=== PATIENT | female | born 1985 | race African-American/Black ===

== ENCOUNTER 2018-12-20 13:43 | Inpatient (IN) | payer MEDICAID ==
[~2018-12-20] VITALS: Ht 172.7 cm; Wt 81.2 kg
[~2018-12-20 13:43] MED LIST: AMLO-147 PO; ASPI-817 PO; ASPI81TA52 PO; ATOR40TA68 PO; CARV3.1260 PO; DILT120C77 PO; HYDR-3672 PO; HYDR12.53 PO; HYDR25TA6 PO; LISI10TA2 PO; METF-480 PO; METF500T PO; METF500T24 PO
[2018-12-20] MEDS ORDERED: SOD CHLORIDE 0.9% 1,000 ML IV STA (13:58)
[2018-12-20] MEDS ORDERED: METOPROLOL 5 MG INJ IV ONE ×2 (14:30→16:30)
[2018-12-20] MEDS ORDERED: ONDANSETRON 4 MG INJ IV PRN (16:30)
[2018-12-20] MEDS ORDERED: CEFTRIAXONE 1 GM/50 ML (PMX) 50 ML IVPB ONE (16:30)
[2018-12-20] MEDS ORDERED: ACETAMINOPHEN 325 MG TAB PO PRN ×2 (16:30→17:00)
--- NOTE | 2018-12-20 16:59 | ERD ---
ER Documentation Chief Complaint Chief Complaint SYNCOPAL EPISODE TODAY FOUND ON FLOOR WITH NO TRAUMA. NO CP OR SOB . NO SZ HPI This is a 33-year-old female with a past medical history of hypertension, hyperlipidemia, diabetes, previous stroke with residual left-sided facial droop, noncompliant on her blood pressure medications, who is presenting with a transient episode of unresponsiveness at this morning. The patient was repor tedly in bed when she had an episode of unresponsiveness. She reportedly fell out of the bed. The patient seemed to wake up shortly thereafter. There is no witnessed seizure-like activity. There is no tonic-clonic shaking. Patient seemed confused after the event, but she returned to baseline prior to arrival to the emergency department. The patient does not endorse any focal deficits at this time aside from her left-sided facial droop. The patient denies feeling sick recently. The patient denies fever or chills. The patient has had no headache or vision changes. The patient does not endorse neck or back pain. The patient denies lightheadedness or dizziness. The patient has had no chest pain or trouble breathing. The patient denies nausea or vomiting. The patient denies abdominal pain. The patient denies changes to bowel movements or urination. ROS All systems reviewed and are negative except as per history of present illness. Medications Home Meds Reported Medications Aspirin (Low Dose Aspirin) 81 Mg Tablet.dr, 81 MG PO DAILY, #30 TAB 12/20/18 Hydralazine Hcl* (Hydralazine Hcl*) 50 Mg Tab, 50 MG PO TID PRN for BLOOD PRESSURE SUPPORT, #120 TAB 12/20/18 Metformin Hcl* (Metformin Hcl*) 500 Mg Tablet, 500 MG PO WITH BREAKFAST, #30 TAB 12/20/18 Atorvastatin* (Atorvastatin*) 40 Mg Tablet, 40 MG PO QHS, #30 TAB 12/20/18 Amlodipine Besylate* (Amlodipine Besylate*) 10 Mg Tablet, 10 MG PO DAILY, #30 TAB 12/20/18 Hydrochlorothiazide* (Hydrochlorothiazide*) 25 Mg Tab, 25 MG PO DAILY, #30 TAB 12/20/18 Discontinued Reported Medications Metformin Hcl (Glucophage) 500 Mg Tablet, 500 MG PO DAILY 09/07/13 Discontinued Scripts Hydrochlorothiazide (Hydrochlorothiazide) 12.5 Mg Capsule, 12.5 MG PO DAILY for 30 Days, CAP 2 Refills Prov:SHIRA,BOLATITO M. 04/17/16 Aspirin* (Aspirin* EC) 81 Mg Tablet.dr, 81 MG PO DAILY for 30 Days, 2 Refills Prov:MALDONADO SILVA. 04/17/16 Lisinopril* (Lisinopril*) 10 Mg Tablet, 20 MG PO DAILY for 30 Days, 2 Refills Prov:MALDONADO SILVA. 04/17/16 Allergies Allergies: Coded Allergies: Penicillins (Verified Allergy, Intermediate, RASH, 12/20/18) PMhx/Soc History of Surgery: No Anesthesia Reaction: No Hx Neurological Disorder: Yes (CVA) Hx Respiratory Disorders: No Hx Cardiac Disorders: Yes (Hypertension, hyperlipidemia, diabetes) Hx Psychiatric Problems: No Hx Miscellaneous Medical Probl: No Hx Alcohol Use: Yes (Socially) Hx Substance Use: No Hx Tobacco Use: No Smoking Status: Never smoker FmHx Family History: diabetes Physical Exam Vitals Vital Signs Date Temp Pulse Resp B/P (MAP) Pulse Ox O2 O2 Flow FiO2 Time Delivery Rate 12/20/18 91 18 191/109 97 Room Air 15:42 (136) 12/20/18 99.1 123 20 240/139 99 13:54 (172) Physical Exam Const: No apparent distress, well-developed, well-nourished Head: Normocephalic, Atraumatic Eyes: Normal Conjunctiva. Extraocular movements intact. Pupils equal, round and reactive to light ENT: Normal External Ears, Nose and Mouth. Neck: Full range of motion. No meningismus. Resp: Clear to auscultation bilaterally, No wheezes, rales or rhonchi Cardio: Regular rhythm. Tachycardia. No murmurs, rubs or gallops. Hypertensive 240s/130s Abd: Soft, non tender, non distended. Normal bowel sounds Skin: No petechiae or rashes Back: No midline tenderness. No CVA tenderness Ext: No cyanosis, or edema Neur: Awake and alert, oriented 4. Cranial nerves intact. Left facial droop. Normal strength, sensation and coordination. Psych: Normal Mood and Affect Result Diagram: 12/20/18 1427 12/20/18 1427 Results 24 hrs Laboratory Tests Test 12/20/18 14:26 12/20/18 14:27 12/20/18 14:48 Bedside Glucose 221 mg/dL White Blood Count 7.3 10^3/ul Red Blood Count 4.68 10^6/ul Hemoglobin 13.9 g/dl Hematocrit 41.0 % Mean Corpuscular Volume 87.6 fl Mean Corpuscular Hemoglobin 29.7 pg Mean Corpuscular 33.9 g/dl Hemoglobin Concent Red Cell Distribution Width 13.0 % Platelet Count 271 10^3/UL Mean Platelet Volume 10.8 fl Immature Granulocytes % 0.300 % Neutrophils % 56.7 % Lymphocytes % 29.4 % Monocytes % 11.3 % Eosinophils % 1.2 % Basophils % 1.1 % Nucleated Red Blood Cells % 0.0 /100WBC Immature Granulocytes # 0.020 10^3/ul Neutrophils # 4.2 10^3/ul Lymphocytes # 2.2 10^3/ul Monocytes # 0.8 10^3/ul Eosinophils # 0.1 10^3/ul Basophils # 0.1 10^3/ul Nucleated Red Blood Cells # 0.0 10^3/ul Prothrombin Time 14.0 Sec Prothrombin Time Ratio 1.1 INR International 1.07 Normalized Ratio Sodium Level 135 mmol/L Potassium Level 3.2 mmol/L Chloride Level 99 mmol/L Carbon Dioxide Level 29 mmol/L Anion Gap 7 Blood Urea Nitrogen 19 mg/dl Creatinine 0.83 mg/dl Est Glomerular Filtrat > 60 mL/min Rate mL/min Glucose Level 250 mg/dl Calcium Level 9.1 mg/dl Troponin I 0.032 ng/ml Urine Color YELLOW Urine Clarity SLIGHTLY CLOUDY Urine pH 8.0 Urine Specific [place] 1.012 Urine Ketones NEGATIVE mg/dL Urine Nitrite NEGATIVE mg/dL Urine Bilirubin NEGATIVE mg/dL Urine Urobilinogen NEGATIVE mg/dL Urine Leukocyte Esterase NEGATIVE Damián/ul Urine Microscopic RBC 2 /HPF Urine Microscopic WBC 8 /HPF Urine Squamous Epithelial Cells MODERATE /HPF Urine Bacteria FEW /HPF Urine Hemoglobin NEGATIVE mg/dL Urine Glucose 3+ mg/dL Urine Total Protein 3+ mg/dl Current Medications Medications Dose Sig/Jose Daivd Start Time Status Last (Trade) Ordered Route PRN Stop Time Admin Dose Reason Admin Sodium 1,000 ml @ Q1H STAT 12/20/18 DC Chloride 1,000 mls/hr IV 13:58 12/20/18 14:57 Metoprolol 5 mg ONCE ONCE 12/20/18 DC 12/20/18 Tartrate IV 14:30 14:31 (Lopressor) 12/20/18 14:31 Procedures/MDM MDM The patient's presentation warrants further investigation. Previous medical records, if available, were reviewed. LABS The patient's laboratory testing was obtained and reviewed. No emergent treatment was required unless described below. CBC: No E/o systemic infection or severe anemia or thrombocytopenia Chemistry: Hypokalemia, not emergent. No E/o severe acidosis or alkalosis or renal failure. Hyperglycemia without diabetic ketoacidosis PT/INR: No E/o significant coagulopathy Troponin: No E/o acute ischemia Urine: E/o acute infection without hematuria EKG EKG read by me: Rate/Rhythm: Regular rate and rhythm at a rate of 90 bpm Intervals: Normal Renick: Normal Impression: LVH with early repolarization. No evidence of STEMI. IMAGING Imaging and Radiology interpretation reviewed. CXR COMPARISON: 04/15/2016 FINDINGS: The lungs are clear. The heart size is magnified. There is no pleural effusion. There is no pneumothorax. IMPRESSION: No focal consolidation. Electronically viewed and signed by Physician Adiel on 12/20/2018 14:24 CT Head COMPARISON: MR 04/16/2016; CT BRAIN 04/05/2012 FINDINGS: There is no intracranial hemorrhage, mass effect, or midline shift. No extra-axial fluid collection is seen. Mild cerebral volume loss, new since the prior studies. There is patchy decreased attenuation in the periventricular and deep white matter, somewhat nonspecific. The diego white matter differentiation appears well-preserved no acute infarct. The visualized paranasal sinuses and osseous structures are grossly unremarkable. IMPRESSION: 1. No evidence of acute intracranial pathology. 2. Mild patchy decreased attenuation in the periventricular and deep white matter, which is fairly nonspecific in appearance and could reflect sequelae related to hypertensive microvascular ischemic disease or perhaps complicated migraines. Demyelination cannot be entirely excluded in the appropriate clinical setting. Consider continued follow-up with MRI. 3. Mild cerebral volume loss, new since the prior studies. Electronically viewed and signed by Bia Alberto MD, on 12/20/2018 14:57 TREATMENT/DISPOSITION The patient presents for an episode of syncope. I am concerned about possible correlation with her significant hypertension, which is concerning for hypertensive urgency/emergency. The patient is also significantly tachycardic. The patient's symptoms are not consistent with pulmonary embolism, which was con sidered given her syncopal event this morning. The patient was given doses of Lopressor in the emergency department with improvement of her heart rate and blood pressure. The patient does admit to noncompliance with her blood pressure medications, which is likely associated with her presentation today. The patient's troponin is within normal limits. The patient's EKG does reveal findings potentially concerning for demand ischemia versus simply left ventricular hypertrophy with early repolarization. I do not suspect acute coronary syndrome. I do not see evidence of any emergent cardiac arrhythmia, which includes but is not limited to heart block, Brugada syndrome or WPW. The patient has no heart murmurs or rales. There is no evidence of cardiomegaly on exam or chest xray. I have low suspicion for hypertrophic cardiomyopathy. I do not see evidence of CHF. The patient does not endorse any chest or pleuritic pain. The history is negative for bleeding or clotting disorders. The patient has not been involved in any recent prolonged trips or surgeries or hospitalizations. The patient has no calf tenderness or swelling. I have decreased suspicion for PE as the etiology of symptoms. The patient is not clinically orthostatic. The patient is not dizzy. I have decreased suspicion for vertigo. The patient has no signs of emergent or symptomatic anemia. The patient does not have any emergent electrolyte or metabolic emergencies. I have decrease suspicion for a thyroid disorder. The patient is not toxic appearing. I have decreased suspicion for an infectious etiology of symptoms. That said, the patient has a urinalysis that is potentially consistent with a urinary tract infection. She was given a dose of Rocephin in the emergency department. The patient has no new focal deficits. The patient has a chronic unchanged left facial droop from previous stroke. Otherwise, the neurologic exam is reassuring. The patient CT of the head does not reveal evidence of acute ischemia. I have decreased suspicion for cerebral ischemia. There was no trauma or injury. There is no personal or family history of cerebral aneurysm. I have decreased suspicion for SAH or other ICH. I have low suspicion for temporal arteritis, cavernous venous thrombosis, subdural hematoma, epidural hematoma, meningitis. ADMISSION At this time, I feel that the patient requires admission for further evaluation and management. The patient will be admitted to panel in accordance with the patient's insurance. The patient was accepted by Dr. Foreman at 1614 p.m on December 20, 2018 to telemetry. DISCLAIMER Inadvertent spelling and grammatical errors are likely due to EHR/dictation software use and do not reflect on the overall quality of patient care. Note that the electronic time recorded on this note does not necessarily reflect the actual time of the patient encounter. Departure Diagnosis: Primary Impression: Syncope Syncope type: unspecified Qualified Codes: R55 - Syncope and collapse Additional Impressions: Hypertensive urgency Tachycardia Demand ischemia LVH (left ventricular hypertrophy) UTI (urinary tract infection) Urinary tract infection type: acute cystitis Hematuria presence: without hematuria Qualified Codes: N30.00 - Acute cystitis without hematuria Hypokalemia Hyperglycemia Condition: Serious JACI MARTINEZ MD Dec 20, 2018 16:35
[2018-12-20] MEDS ORDERED: GLUCOSE GEL 15 GRAM TUBE PO PRN ×2 (17:00)
[2018-12-20] MEDS ORDERED: GLUCAGON 1 MG INJ IM PRN (17:00)
[2018-12-20] MEDS ORDERED: GLUCOSE GEL 15 GRAM TUBE BUCCAL PRN (17:00)
[2018-12-20] MEDS ORDERED: NACL 0.9% 3 ML SYG IV SCH (17:00)
[2018-12-20] MEDS ORDERED: DEXTROSE 50% 50 ML SYRINGE IV PRN ×2 (17:00)
--- NOTE | 2018-12-20 17:06 | HP ---
Date/Time of Note Date/Time of Note DATE: 12/20/18 TIME: 16:47 Assessment/Plan VTE Prophylaxis SCD applied (from Nsg): Yes Pharmacological prophylaxis: NA/contraindicated Pharm contraindication: low risk/ambulating Lines/Catheters IV Catheter Type (from Nrsg): Saline Lock Assessment/Plan Assessment/Plan 33 yo obese woman with history of uncontrolled hypertension and diabetes presents with severe hypertension #Syncope - Occurred while the patient was laying down, not consistent with orthostatic syncope. - May have been a vasovagal event. - Had abnormal MRI in the past. Will get repeat MRI to further evaluate. And will get carotid duplex to work up neurogenic causes. - She denies chest pain/pressure/palpitations, denies heart failure symptoms. Will admit to telemetry for 24 hrs. I do not think extensive cardiac workup is necessary. #Severe hypertension - The patient is supposed to be on norvasc, HCTZ, and hydralazine but doesn't take them. - Will restart home BP meds for now. - Will try to get SBP<180 overnight. - prn labetalol. #Diabetes type II - Will resume home metformin - Sliding scale insulin. #Dyslipidemia - Continue home aspirin, statin. DVT: SCDs GI: None Result Diagram: 12/20/18 1427 12/20/18 1427 HPI/ROS Admit Date/Time Admit Date/Time 20 December 2018 Hx of Present Illness Ms. Polanco is an obese 33 yo woman with diabetes and hypertension who presents after a syncopal episode. She was at home, lying on her bed talking on the phone. Suddenly she lost consciousness and woke up face down on the floor (she had rolled off the bed). She denies associated headache, dizziness, palpitations, or chest pain prior to the event. Her grandmother was at home, heard a thump, and called EMS. The patient says at work a few weeks ago she had an episode of dizziness. Otherwise no recent symptoms. She is supposed to be on three antihypertensives but has been off them for months because "they make me feel nauseated and dizzy". In the ED she was afebrile, tachy to 120s, BP 240/139, breathing comfortably on room air. CT showed areas of mild patchy decreased attenuation in the periventricular and deep white matter. CXR was clear. Troponin was negative. ROS The patient denies fever, chills, night sweats, anorexia, headache, dizziness, vision changes, nausea, vomiting, abdominal pain, cough, dyspnea, sore throat, diarrhea, constipation, leg swelling, dysuria. PMH/Family/Social Past Medical History Hypertension Diabetes mellitus type II The patient says she had a stroke at age 16 with L facial droop, but MRI in 2016 does not show any old stroke. Medications Current Medications Ceftriaxone Sodium 50 ml @ 100 mls/hr ONCE ONCE IVPB ; Start 12/20/18 at 16:30; Stop 12/20/18 at 16:59 Ondansetron HCl (Zofran Inj) 4 mg ER BRIDGE PRN IV NAUSEA/VOMITING; Start 12/20/18 at 16:30; Stop 12/21/18 at 16:29 Acetaminophen (Tylenol Tab) 650 mg ER BRIDGE PRN PO .MILD PAIN 1-3 OR TEMP; Start 12/20/18 at 16:30; Stop 12/21/18 at 16:29 IV Flush (NS 3 ml) 3 ml PER PROTOCOL IV ; Start 12/20/18 at 17:00; Status UNV Acetaminophen (Tylenol Tab) 650 mg Q6H PRN PO .PAIN 1-3 OR TEMP; Start 12/20/18 at 17:00; Status UNV Amlodipine Besylate (Norvasc) 10 mg DAILY PO ; Start 12/20/18 at 17:00; Status UNV Aspirin (Halfprin) 81 mg DAILY PO ; Start 12/21/18 at 09:00; Status UNV Atorvastatin Calcium (Lipitor) 40 mg QHS PO ; Start 12/20/18 at 21:00; Status UNV Hydralazine HCl (Apresoline) 50 mg TID PRN PO BLOOD PRESSURE SUPPORT; Start 12/20/18 at 17:00; Status UNV Hydrochlorothiazide (Hydrochlorothiazide) 25 mg DAILY PO ; Start 12/20/18 at 17:00; Status UNV Metformin HCl (Glucophage) 500 mg WITH BREAKFAST PO ; Start 12/21/18 at 08:00; Status UNV Coded Allergies: Penicillins (Verified Allergy, Intermediate, RASH, 12/20/18) Past Surgical History Past Surgical Hx: no surgical history Family History Significant Family History: other Social History Alcohol Use: heavy (She drinks 1/2 bottle of vodka per day) Smoking Status: Never smoker Drug Use: none Exam/Review of Systems Vital Signs Vitals Vital Signs Date Temp Pulse Resp B/P (MAP) Pulse Ox O2 O2 Flow FiO2 Time Delivery Rate 12/20/18 91 18 191/109 97 Room Air 15:42 (136) 12/20/18 99.1 13:54 Exam Exam Gen: Obese woman supine in gurney no acute distress. Eyes: PERRL, no icterus HEENT: Moist mucous membranes, clear oropharynx Neck: Supple, no lymphadenopathy, no jugular venous distension Card: Regular rate and rhythm, no murmurs Pulm: Clear to auscultation bilaterally. Abd: Soft, nontender to palpation, nondistended. Normoactive bowel sounds. Ext: No cyanosis/clubbing/edema. Skin: No jaundice. Warm, dry, well perfused. There are a few spots of what looks like lichen planus on the legs. ENEDELIA HICKS MD Dec 20, 2018 16:58
[2018-12-20] MEDS: AMLODIPINE 10 MG TAB PO SCH (17:27)
[2018-12-20] MEDS: HYDROCHLOROTHIAZIDE 25 MG TAB PO SCH (17:27)
[2018-12-20] MEDS ORDERED: LABETALOL HCL 20MG INJ IV PRN (17:30)
[2018-12-20] MEDS: INSULIN ASPART [NOVOLOG] 3 ML PEN SC SCH ×2 (18:00→20:38)
[2018-12-20 18:24] VITALS: BP 185/99; PULSE 19; PULSE 86
[2018-12-20 19:04] VITALS: BP 184/103; PULSE 82; RESP 20
[2018-12-20 20:00] VITALS: Ht 172.7 cm; Wt 81.2 kg
[2018-12-20] MEDS: ATORVASTATIN 40 MG TAB PO SCH (21:37)
[2018-12-20 23:26] VITALS: BP 180/98; PULSE 81; RESP 20
[2018-12-21] MEDS ORDERED: ACCU-CHEK XX SCH (02:00)
[2018-12-21 04:00] VITALS: BP 166/98; PULSE 80; RESP 20
[2018-12-21] MEDS ORDERED: POTASSIUM CHLORIDE (SR) 20 MEQ TAB PO ONE (06:30)
[2018-12-21 07:33] VITALS: BP 158/90; PULSE 78; RESP 20
[2018-12-21] MEDS ORDERED: metFORMIN 500 MG TAB PO SCH (08:00)
[2018-12-21] MEDS: AMLODIPINE 10 MG TAB PO SCH (08:33)
[2018-12-21] MEDS: ASPIRIN (EC) 81 MG TAB PO SCH (08:33)
[2018-12-21] MEDS: HYDROCHLOROTHIAZIDE 25 MG TAB PO SCH (08:33)
[2018-12-21] MEDS: INSULIN ASPART [NOVOLOG] 3 ML PEN SC SCH ×6 (08:45→21:00)
--- NOTE | 2018-12-21 10:01 | PN ---
Date/Time of Note Date/Time of Note DATE: 12/21/18 TIME: 09:53 Assessment/Plan VTE Prophylaxis Risk score (from Nsg)>0 risk: 1 SCD applied (from Nsg): Yes Pharmacological prophylaxis: other Lines/Catheters IV Catheter Type (from Nrsg): Saline Lock Urinary Cath still in place: No Assessment/Plan Hospital Course S: Patient denies any chest pain shortness of breath. Still waiting for brain MRI. O: VS- see below PE: Gen: Obese woman lying in bed, answering questions appropriately Eyes: PERRL, no icterus HEENT: Moist mucous membranes, clear oropharynx Neck: Supple, no lymphadenopathy, no jugular venous distension Card: Regular rate and rhythm, no murmurs Pulm: Clear to auscultation bilaterally. Abd: Soft, nontender to palpation, nondistended. Normoactive bowel sounds. Ext: No cyanosis/clubbing/edema. Assessment/Plan: 33 yo obese woman with history of uncontrolled hypertension and diabetes presented with syncope and severe hypertension #Syncope- Occurred while the patient was laying down, not consistent with orthostatic syncope- May have been a vasovagal event- She denies chest pain/pressure/palpitations, denies heart failure symptoms. - Had abnormal MRI in the past. Will get repeat MRI to further evaluate. - Follow-up results of echocardiogram #Severe hypertension-blood pressure in the high normal range now. The patient is supposed to be on norvasc, HCTZ, and hydralazine but doesn't take them at home for the last few months now. -Continue current BP meds for now. - Will try to get SBP<180 overnight. - prn labetalol, and IV hydralazine #Diabetes type II: Sugars in the high normal range, A1c equals 10.8. -Add aspart with meals, Lantus, and continue ISS #Dyslipidemia - Continue home aspirin, statin. DVT: SCDs GI: None Result Diagram: 12/21/1852512/21/18525 Results 24hrs Laboratory Tests Test 12/20/18 14:26 12/20/18 14:27 12/20/18 14:48 12/20/18 19:52 Bedside Glucose 221 H 154 White Blood Count 7.3 # Red Blood Count 4.68 Hemoglobin 13.9 Hematocrit 41.0 Mean Corpuscular 87.6 Volume Mean Corpuscular 29.7 Hemoglobin Mean Corpuscular 33.9 Hemoglobin Concen t Red Cell 13.0 Distribution Width Platelet Count 271 Mean Platelet 10.8 H Volume Immature 0.300 Granulocytes % Neutrophils % 56.7 Lymphocytes % 29.4 Monocytes % 11.3 H Eosinophils % 1.2 Basophils % 1.1 Nucleated Red 0.0 Blood Cells % Immature 0.020 Granulocytes # Neutrophils # 4.2 Lymphocytes # 2.2 Monocytes # 0.8 Eosinophils # 0.1 Basophils # 0.1 Nucleated Red 0.0 Blood Cells # Prothrombin Time 14.0 Prothrombin Time 1.1 Ratio INR International 1.07 Normalized Ratio Sodium Level 135 Potassium Level 3.2 L Chloride Level 99 Carbon Dioxide 29 Level Anion Gap 7 Blood Urea 19 Nitrogen Creatinine 0.83 Est Glomerular > 60 Filtrat Rate mL/min Glucose Level 250 H Calcium Level 9.1 Troponin I 0.032 Urine Color YELLOW Urine Clarity SLIGHTLY CLOUDY A Urine pH 8.0 Urine Specific 1.012 [place] Urine Ketones NEGATIVE Urine Nitrite NEGATIVE Urine Bilirubin NEGATIVE Urine NEGATIVE Urobilinogen Urine Leukocyte NEGATIVE Esterase Urine Microscopic 2 RBC Urine Microscopic 8 H WBC Urine Squamous MODERATE Epithelial Cells Urine Bacteria FEW A Urine Hemoglobin NEGATIVE Urine Glucose 3+ H Urine Total 3+ H Protein Test 12/20/18 21:36 12/21/18 05:26 12/21/18 08:31 Bedside Glucose 183 231 H White Blood Count 8.8 # Red Blood Count 4.58 Hemoglobin 13.5 Hematocrit 41.2 Mean Corpuscular 90.0 Volume Mean Corpuscular 29.5 Hemoglobin Mean Corpuscular 32.8 Hemoglobin Concen t Red Cell 13.2 Distribution Width Platelet Count 272 Mean Platelet 11.3 H Volume Immature 0.200 Granulocytes % Neutrophils % 49.0 Lymphocytes % 37.6 Monocytes % 10.8 Eosinophils % 1.1 Basophils % 1.3 Nucleated Red 0.0 Blood Cells % Immature 0.020 Granulocytes # Neutrophils # 4.3 Lymphocytes # 3.3 H Monocytes # 1.0 H Eosinophils # 0.1 Basophils # 0.1 Nucleated Red 0.0 Blood Cells # Sodium Level 136 Potassium Level 2.9 *L Chloride Level 97 Carbon Dioxide 31 Level Anion Gap 8 Blood Urea 18 Nitrogen Creatinine 1.01 H Est Glomerular > 60 Filtrat Rate mL/min Glucose Level 198 Hemoglobin A1c 10.8 H Calcium Level 8.8 Phosphorus Level 3.5 Magnesium Level 1.8 Total Bilirubin 0.7 Direct Bilirubin 0.00 Indirect 0.7 Bilirubin Aspartate Amino 59 H Transf (AST/SGOT) Alanine 49 Aminotransferase (ALT/SGPT) Alkaline 50 Phosphatase Total Protein 7.4 Albumin 3.7 Globulin 3.70 H Albumin/Globulin 1.00 Ratio Triglycerides 267 H Level Cholesterol Level 195 LDL Cholesterol, 116 Calculated HDL Cholesterol 26 L Cholesterol/HDL 7.5 Ratio Thyroid 0.709 Stimulating Hormone (TSH) Exam/Review of Systems Exam Vitals Vital Signs Date Temp Pulse Resp B/P (MAP) Pulse Ox O2 O2 Flow FiO2 Time Delivery Rate 12/21/18 98.0 78 20 158/90 97 07:33 (112) 12/20/18 Room Air 18:24 Intake and Output 12/20/18 12/20/18 12/21/18 1515:00 23:00 07:00 IntakeIntake Total 400 ml BalanceBalance 400 ml Results Results 24hrs Laboratory Tests Test 12/20/18 14:26 12/20/18 14:27 12/20/18 14:48 12/20/18 19:52 Bedside Glucose 221 H 154 White Blood Count 7.3 # Red Blood Count 4.68 Hemoglobin 13.9 Hematocrit 41.0 Mean Corpuscular 87.6 Volume Mean Corpuscular 29.7 Hemoglobin Mean Corpuscular 33.9 Hemoglobin Concen t Red Cell 13.0 Distribution Width Platelet Count 271 Mean Platelet 10.8 H Volume Immature 0.300 Granulocytes % Neutrophils % 56.7 Lymphocytes % 29.4 Monocytes % 11.3 H Eosinophils % 1.2 Basophils % 1.1 Nucleated Red 0.0 Blood Cells % Immature 0.020 Granulocytes # Neutrophils # 4.2 Lymphocytes # 2.2 Monocytes # 0.8 Eosinophils # 0.1 Basophils # 0.1 Nucleated Red 0.0 Blood Cells # Prothrombin Time 14.0 Prothrombin Time 1.1 Ratio INR International 1.07 Normalized Ratio Sodium Level 135 Potassium Level 3.2 L Chloride Level 99 Carbon Dioxide 29 Level Anion Gap 7 Blood Urea 19 Nitrogen Creatinine 0.83 Est Glomerular > 60 Filtrat Rate mL/min Glucose Level 250 H Calcium Level 9.1 Troponin I 0.032 Urine Color YELLOW Urine Clarity SLIGHTLY CLOUDY A Urine pH 8.0 Urine Specific 1.012 [place] Urine Ketones NEGATIVE Urine Nitrite NEGATIVE Urine Bilirubin NEGATIVE Urine NEGATIVE Urobilinogen Urine Leukocyte NEGATIVE Esterase Urine Microscopic 2 RBC Urine Microscopic 8 H WBC Urine Squamous MODERATE Epithelial Cells Urine Bacteria FEW A Urine Hemoglobin NEGATIVE Urine Glucose 3+ H Urine Total 3+ H Protein Test 12/20/18 21:36 12/21/18 05:26 12/21/18 08:31 Bedside Glucose 183 231 H White Blood Count 8.8 # Red Blood Count 4.58 Hemoglobin 13.5 Hematocrit 41.2 Mean Corpuscular 90.0 Volume Mean Corpuscular 29.5 Hemoglobin Mean Corpuscular 32.8 Hemoglobin Concen t Red Cell 13.2 Distribution Width Platelet Count 272 Mean Platelet 11.3 H Volume Immature 0.200 Granulocytes % Neutrophils % 49.0 Lymphocytes % 37.6 Monocytes % 10.8 Eosinophils % 1.1 Basophils % 1.3 Nucleated Red 0.0 Blood Cells % Immature 0.020 Granulocytes # Neutrophils # 4.3 Lymphocytes # 3.3 H Monocytes # 1.0 H Eosinophils # 0.1 Basophils # 0.1 Nucleated Red 0.0 Blood Cells # Sodium Level 136 Potassium Level 2.9 *L Chloride Level 97 Carbon Dioxide 31 Level Anion Gap 8 Blood Urea 18 Nitrogen Creatinine 1.01 H Est Glomerular > 60 Filtrat Rate mL/min Glucose Level 198 Hemoglobin A1c 10.8 H Calcium Level 8.8 Phosphorus Level 3.5 Magnesium Level 1.8 Total Bilirubin 0.7 Direct Bilirubin 0.00 Indirect 0.7 Bilirubin Aspartate Amino 59 H Transf (AST/SGOT) Alanine 49 Aminotransferase (ALT/SGPT) Alkaline 50 Phosphatase Total Protein 7.4 Albumin 3.7 Globulin 3.70 H Albumin/Globulin 1.00 Ratio Triglycerides 267 H Level Cholesterol Level 195 LDL Cholesterol, 116 Calculated HDL Cholesterol 26 L Cholesterol/HDL 7.5 Ratio Thyroid 0.709 Stimulating Hormone (TSH) Medications Medication Current Medications Ondansetron HCl (Zofran Inj) 4 mg ER BRIDGE PRN IV NAUSEA/VOMITING; Start 12/20/18 at 16:30; Stop 12/21/18 at 16:29 IV Flush (NS 3 ml) 3 ml PER PROTOCOL IV ; Start 12/20/18 at 17:00 Acetaminophen (Tylenol Tab) 650 mg Q6H PRN PO .PAIN 1-3 OR TEMP; Start 12/20/18 at 17:00 Amlodipine Besylate (Norvasc) 10 mg DAILY PO Last administered on 12/21/18at 08:33; Admin Dose 10 MG; Start 12/20/18 at 17:00 Aspirin (Halfprin) 81 mg DAILY PO Last administered on 12/21/18at 08:33; Admin Dose 81 MG; Start 12/21/18 at 09:00 Atorvastatin Calcium (Lipitor) 40 mg QHS PO Last administered on 12/20/18at 21:37; Admin Dose 40 MG; Start 12/20/18 at 21:00 Hydrochlorothiazide (Hydrochlorothiazide) 25 mg DAILY PO Last administered on 12/21/18at 08:33; Admin Dose 25 MG; Start 12/20/18 at 17:00 Miscellaneous Information 1 ea NOTE XX ; Start 12/20/18 at 17:00 Glucose (Glutose) 15 gm Q15M PRN PO DECREASED GLUCOSE; Start 12/20/18 at 17:00 Glucose (Glutose) 22.5 gm Q15M PRN PO DECREASED GLUCOSE; Start 12/20/18 at 17:00 Dextrose (D50w Syringe) 25 ml Q15M PRN IV DECREASED GLUCOSE; Start 12/20/18 at 17:00 Dextrose (D50w Syringe) 50 ml Q15M PRN IV DECREASED GLUCOSE; Start 12/20/18 at 17:00 Glucagon (Glucagen) 1 mg Q15M PRN IM DECREASED GLUCOSE; Start 12/20/18 at 17:00 Glucose (Glutose) 15 gm Q15M PRN BUCCAL DECREASED GLUCOSE; Start 12/20/18 at 17:00 Diagnostic Test (Pha) (Accu-Chek) 1 ea 02 XX ; Start 12/21/18 at 02:00 Insulin Aspart (Novolog Insulin Pen) NOVOLOG *MODERATE* ALGORITHM WITH MEALS BEDTIME SC Last administered on 12/21/18at 08:45; Admin Dose 6 UNIT; Start 12/20/18 at 18:00 Labetalol HCl (Labetalol) 20 mg Q4H PRN IV hypertension; Start 12/20/18 at 17:30; Status Hold Hydralazine HCl (Apresoline) 10 mg Q6H PRN IV ELEVATED BLOOD PRESSURE; Start 12/21/18 at 10:00; Status UNV Miscellaneous Information (* Miscellaneous Pharmacy Order) Discontinue all previ... ONCE ONCE XX ; Start 12/21/18 at 10:00; Stop 12/21/18 at 10:01; Status UNV Miscellaneous Information (* Miscellaneous Pharmacy Order) Discontinue current oral sulfonylur... ONCE ONCE XX ; Start 12/21/18 at 10:00; Stop 12/21/18 at 10:01; Status UNV Diagnostic Test (Pha) (Accu-Chek) 1 XX ; Start 12/22/18 at 02:00; Status UNV Insulin Glargine (Lantus) 12 units DAILY@2000 SC ; Start 12/21/18 at 20:00; Status UNV Miscellaneous Information (* Miscellaneous Pharmacy Order) HYPOGLYCEMIA PROTOCOL w... ONCE ONCE XX ; Start 12/21/18 at 10:00; Stop 12/21/18 at 10:01; Status UNV LUIGI LINK Dec 21, 2018 10:01
[2018-12-21 11:44] VITALS: BP 180/109; PULSE 96; RESP 20
[2018-12-21 15:54] VITALS: BP 187/110; PULSE 90; RESP 20
[2018-12-21] MEDS: hydrALAzine 20 MG INJ IV PRN (17:15)
[2018-12-21 19:56] VITALS: BP 216/119; PULSE 120; RESP 18
[2018-12-21] MEDS ORDERED: INSULIN GLARGINE [LANTus] (100 UNITS/ML) SYG SC SCH (20:00)
[2018-12-21] MEDS: ATORVASTATIN 40 MG TAB PO SCH (21:24)
[2018-12-21 23:53] VITALS: BP 181/107; PULSE 91; RESP 18
[2018-12-22] MEDS: hydrALAzine 20 MG INJ IV PRN ×2 (00:18→06:01)
[2018-12-22] MEDS ORDERED: ACCU-CHEK XX SCH ×2 (02:00)
[2018-12-22 04:15] VITALS: BP 176/99; PULSE 94; RESP 16
[2018-12-22 06:22] VITALS: BP 174/102
[2018-12-22 07:40] VITALS: BP 174/90; PULSE 100; RESP 18
[2018-12-22] MEDS: HYDROCHLOROTHIAZIDE 25 MG TAB PO SCH (08:45)
[2018-12-22] MEDS: AMLODIPINE 10 MG TAB PO SCH (08:45)
[2018-12-22] MEDS: ASPIRIN (EC) 81 MG TAB PO SCH (08:45)
[2018-12-22] MEDS: INSULIN ASPART [NOVOLOG] 3 ML PEN SC SCH ×4 (08:48→11:47)
[2018-12-22] MEDS ORDERED: HYDROCHLOROTHIAZIDE 25 MG TAB PO SCH (11:00)
[2018-12-22] MEDS ORDERED: DILTIAZEM (CD) 120 MG CAP PO SCH (11:00)
--- NOTE | 2018-12-22 11:05 | PDOCDIS ---
Discharge Instructions CONDITION [id number] Patient Condition: [id number] Stable HOME CARE INSTRUCTIONS: [id number] Diet Instructions: [id number] Low Fat /Cholesterol ACTIVITY: [id number] Activity Restrictions: [id number] Slowly Increase Activity Rest between Activity Avoid heavy lifting FOLLOW UP/APPOINTMENTS Follow-up Plan Please take your medications as prescribed, get your prescriptions filled at [facility] from the list we gave you, and see your doctor in the clinic in the next 1 to 2 weeks. LUIGI LINK Dec 22, 2018 11:05
--- NOTE | 2018-12-22 11:14 | DS ---
Date/Time of Note Date/Time of Note DATE: 12/22/18 TIME: 11:11 Discharge Summary Admission/Discharge Info Admit Date/Time Dec 20, 2018 at 16:17 Discharge Date/Time Discharge Diagnosis #Syncope- Occurred while the patient was laying down, not consistent with ort hostatic syncope-MRI brain negative for any acute findings #Severe hypertension-blood pressure improved now #Diabetes type II: A1c 10.8 #Dyslipidemia Patient Condition: Stable Procedures MRI brain: IMPRESSION: 1. No acute intracranial hemorrhage, infarction or mass. No intracranial enhancing abnormality. 2. Mild to moderate small foci of white matter signal abnormality with interval progression compared to prior brain MRI, which are nonspecific in appearance and may reflect complicated migraines, early microvascular ischemic disease, vasculopathy, sequela from prior traumatic or inflammatory insults. 3. Small old lacunar infarct in the posterior left frontal lobe. Hospital Course Patient was admitted to telemetry floor and her blood pressure was better controlled with appropriate blood pressure medicines. She was found with A1c of 10.8 and given insulin to help control her sugars better. She was continued on statin medicine for high cholesterol. Over the course of her hospital stay her blood pressure slowly improved. Her sugars stabilized. She was able to ambu late, tolerated p.o. diet. We provided her with a list of medicines that she can get at [facility] for $4 30-day supply or $10 90-day supply, she can get this while she is waiting for the insurance approval which was also initiated here at the hospital as she apparently does not have insurance. Of note she was counseled about the importance of taking her blood pressure medic nelda at home, as she came in not having taken her blood pressure medicines for the last few months prior to admission. So her symptoms worse likely secondary to noncompliance. Because she is clinically improved she will be discharged home today improved condition. See below for full list of discharge medications. Home Meds Active Scripts Metformin* (Glucophage*) 850 Mg Tablet, 850 MG PO WITH BREAKFAST DINNE, #60 TAB 2 Refills Prov:LUIGI LINK S. 12/22/18 Diltiazem Hcl* (Cardizem CD*) 120 Mg Cap.sr.24h, 120 MG PO DAILY, #30 2 Refills Prov:ANASTACIA LINKP S. 12/22/18 Carvedilol* (Carvedilol*) 3.125 Mg Tablet, 3.125 MG PO BID, #60 TAB 2 Refills Prov:LUIGI LINK S. 12/22/18 Atorvastatin* (Atorvastatin*) 40 Mg Tablet, 40 MG PO QHS, #30 TAB 3 Refills Prov:LUIGI LINK S. 12/22/18 Hydrochlorothiazide* (Hydrochlorothiazide*) 25 Mg Tab, 25 MG PO DAILY, #30 TAB 2 Refills Prov:LUIGI LINK S. 12/22/18 Reported Medications Aspirin (Low Dose Aspirin) 81 Mg Tablet., 81 MG PO DAILY, #30 TAB 12/20/18 Discontinued Reported Medications Hydralazine Hcl* (Hydralazine Hcl*) 50 Mg Tab, 50 MG PO TID PRN for BLOOD P RESSURE SUPPORT, #120 TAB 12/20/18 Metformin Hcl* (Metformin Hcl*) 500 Mg Tablet, 500 MG PO WITH BREAKFAST, #30 TAB 12/20/18 Amlodipine Besylate* (Amlodipine Besylate*) 10 Mg Tablet, 10 MG PO DAILY, #30 TAB 12/20/18 Metformin Hcl (Glucophage) 500 Mg Tablet, 500 MG PO DAILY 09/07/13 Discontinued Scripts Hydrochlorothiazide (Hydrochlorothiazide) 12.5 Mg Capsule, 12.5 MG PO DAILY for 30 Days, CAP 2 Refills Prov:MALDONADO SILVA 04/17/16 Aspirin* (Aspirin* EC) 81 Mg Tablet., 81 MG PO DAILY for 30 Days, 2 Refills Prov:MALDONADO SILVA 04/17/16 Lisinopril* (Lisinopril*) 10 Mg Tablet, 20 MG PO DAILY for 30 Days, 2 Refills Prov:MALDONADO SILVA 04/17/16 Follow-up Plan Please take your medications as prescribed, get your prescriptions [facility] at [facility] from the list we gave you, and see your doctor in the clinic in the next 1 to 2 weeks. Primary Care Provider Care Physician No Primary Time spent on discharge: > 30 minutes Pending Labs Laboratory Tests Test 12/21/18 12:05 12/21/18 17:23 12/21/18 21:06 12/22/18 05:18 Bedside 184 226 160 Glucose mg/dL (70-220) mg/dL (70-220) mg/dL (70-220) White Blood 6.6 Count 10^3/ul (4.8-1 0.8) Red Blood 4.72 Count 10^6/ul (4.20- 5.40) Hemoglobin 13.8 g/dl (12.0-16. 0) Hematocrit 42.5 % (37.0-47.0) Mean 90.0 Corpuscular fl (82.0-101.0 Volume ) Mean 29.2 Corpuscular pg (29.0-33.0) Hemoglobin Mean 32.5 Corpuscular g/dl (32.0-37. Hemoglobin Conc 0) ent Red Cell 13.2 Distribution % (11.5-14.5) Width Platelet Count 275 10^3/UL (140-4 15) Mean Platelet 12.0 Volume fl (7.4-10.4) Immature 0.300 Granulocytes % % (0.001-0.429 ) Neutrophils % 46.7 % (39.0-77.0) Lymphocytes % 37.3 % (15.0-51.0) Monocytes % 12.4 % (0.0-11.0) Eosinophils % 1.8 % (0.0-7.0) Basophils % 1.5 % (0.0-2.0) Nucleated Red 0.0 Blood Cells % /100WBC (0.0-0 .0) Immature 0.020 Granulocytes # 10^3/ul (0.0-0 .031) Neutrophils # 3.1 10^3/ul (1.6-7 .5) Lymphocytes # 2.5 10^3/ul (0.8-2 .9) Monocytes # 0.8 10^3/ul (0.3-0 .9) Eosinophils # 0.1 10^3/ul (0.0-0 .5) Basophils # 0.1 10^3/ul (0.0-0 .1) Nucleated Red 0.0 Blood Cells # 10^3/ul (0.0-0 .0) Sodium Level 133 mmol/L (135-14 4) Potassium 3.1 Level mmol/L (3.5-5. 1) Chloride Level 96 mmol/L (97-110 ) Carbon Dioxide 28 Level mmol/L (21-31) Anion Gap 9 (5-13) Blood Urea 18 Nitrogen mg/dl (7-20) Creatinine 1.01 mg/dl (0.44-1. 00) Est Glomerular > 60 Filtrat mL/min (>60) Rate mL/min Glucose Level 266 mg/dl (70-220) Calcium Level 9.6 mg/dl (8.4-10. 2) Phosphorus 4.3 Level mg/dl (2.5-4.9 ) Magnesium 1.7 Level mg/dl (1.7-2.5 ) Test 12/22/18 08:39 Bedside 232 Glucose mg/dL (70-220) LUIGI LINK Dec 22, 2018 11:14
[2018-12-22 12:26] VITALS: BP 197/110; PULSE 90; RESP 18
[2018-12-22 16:57] VITALS: BP 189/67; PULSE 73; RESP 18
--- NOTE | 2018-12-22 17:54 | RADRPT ---
Echocardiogram Report Patient Name: Michelle PEREZ ID: [id number] : 1985 (33y 10m)Study Date: 12/21/2018 2:41:56 PM Gender: FAccession #: [id number] Tech: Alfredo Espino [facility] Location: 621-[address] Ref.Physician: LUIGI LINK Height(Cm): BSA: Weight(Kg): Quality: AdequateOrder Physician: LUIGI LINK Account #: Procedures: Echocardiographic Report: Transthoracic echocardiogram with complete 2D, M-Mode, and doppler examination. Indications: Syncope, HTN. Measurements: 2D/M Mode Doppler Measurement Value Normal Range Measurement Value Normal Range LVIDd 2D 4.3 [ 3.8 - 5.2 ] cm AV Peak Trev 1.6 [ 100.0 - 170.0 ] cm/sec LVIDs 2D 2.6 [ 2.2 - 3.5 ] cm AV Peak PG 10.0 [ 2.0 - 9.0 ] mmHg LVPWd 2D 2.0 [ 0.6 - 0.9 ] cm LVOT Peak Trev 1.0 [ 70.0 - 110.0 ] cm/sec IVSd 2D 1.9 [ 0.6 - 0.9 ] cm LVOT Peak PG 4.0 [ 2.0 - 6.0 ] mmHg IVS/LVPW 2D 1.0 ratio MV E Peak Trev 1.0 [ 60.0 - 130.0 ] cm/sec AoR Diam 2D 2.4 [ 2.3 - 3.1 ] cm MV A Peak Trev 0.7 [ 100.0 - 120.0 ] cm/sec LA/Ao 2D 2 ratio MV E/A 1.3 [ 0.8 - 1.5 ] ratio LA Dimen 2D 4.6 [ 2.7 - 3.8 ] cm MV Decel Time 151 [ 104 - 258 ] msec MV E/A 1.3 [ 0.8 - 1.5 ] ratio RA Pressure 10.0 mmHg Findings: Left Ventricle: Normal left ventricular systolic function. Normal left ventricular cavity size. Severe concentric left ventricular hypertrophy. Ejection fraction is visually estimated at 65 %. Tissue Doppler/Mitral Doppler indices are consistent with pseudonormalization with mildly elevated left atrial pressure (Stage II diastolic dysfunction). Right Ventricle: Normal right ventricular size. Normal right ventricular systolic function. Left Atrium: There is mild enlargement of left atrium. Right Atrium: The right atrium is normal in size. Mitral Valve: Mild mitral leaflet calcification. Mild mitral annular calcification. Trace mitral regurgitation. Aortic Valve: No significant aortic stenosis or insufficiency. Aortic cusps appear mildly calcified. Tricuspid Valve: Normal appearance of the tricuspid valve. Unable to obtain RVSP due to minimal presence of tricuspid regurgitation. Pericardium: Normal pericardium with no significant pericardial effusion. Left pleural effusion seen. Aorta: Normal aortic root. IVC: Normal size and normal respiratory collapse consistent with normal right atrial pressure. Conclusions: Normal left ventricular systolic function. Normal left ventricular cavity size. Severe concentric left ventricular hypertrophy. Ejection fraction is visually estimated at 65 %. Tissue Doppler/Mitral Doppler indices are consistent with pseudonormalization with mildly elevated left atrial pressure (Stage II diastolic dysfunction). infiltrative heart disease, (such as amyloid etc ) can not be ruled out. There is mild enlargement of left atrium. Mild mitral leaflet calcification. Mild mitral annular calcification. Trace mitral regurgitation. No significant aortic stenosis or insufficiency. Aortic cusps appear mildly calcified. Normal appearance of the tricuspid valve. Unable to obtain RVSP due to minimal presence of tricuspid regurgitation. Normal pericardium with no significant pericardial effusion. Left pleural effusion seen. Electronically Signed By: Bennett Gar 2018-12-22 17:53:45 PDT
== END 2018-12-22 16:50 | disposition home or self-care (01) | DRG 305 ==
LOC: E/R 13:43 → 6WM 16:17
PROVIDERS: ADMIT Internal Medicine; ATTEND Hospitalist
DX: I16.0 Hypertensive urgency (principal); E11.9 Type 2 diabetes mellitus without complications; R55 Syncope and collapse; E78.5 Hyperlipidemia, unspecified; Z79.82 Long term (current) use of aspirin; Z79.4 Long term (current) use of insulin
CPT/HCPCS: 36415; 70450; 70553; 71045; 80048; 80053; 80061; 81001; 82962; 83036; 83735; 84100; 84443; 84484; 85025; 85610; 93005; 93306; 93880; 96374; 97162; J0360; J0696; J1815; J7030